=== PATIENT | male | born 1980 | race Two or more races ===

== ENCOUNTER 2019-11-01 10:42 | Outpatient (CLI) | payer OTHER ==
[~2019-11-01 10:42] MED LIST: FIORICET 50-321 EACH PO
== END 2019-11-01 10:48 | disposition home or self-care (01) ==
LOC: EKG 10:42
DX: R03.0 Elevated blood-pressure reading, without diagnosis of hypertension (principal); Z13.6 Encounter for screening for cardiovascular disorders

== ENCOUNTER 2020-03-07 09:40 | Emergency (ER) | payer OTHER ==
[~2020-03-07] VITALS: Ht 170.2 cm; Wt 107.5 kg
== END 2020-03-07 15:58 | disposition home or self-care (01) ==
LOC: ER 09:40
DX: K29.60 Other gastritis without bleeding (principal); R10.13 Epigastric pain; Z03.818 Encounter for observation for suspected exposure to other biological agents ruled out